=== PATIENT | female | born 1980 | race Caucasian/White ===

== ENCOUNTER 2020-07-16 11:23 | Outpatient (REF) | payer OTHER, SELFPAY | END 2020-07-16 11:24 | disposition home or self-care (01) | LOC: HO.LAB 11:23 | PROVIDERS: Visit Provider Internal Medicine | DX: Z20.822 Contact with and (suspected) exposure to COVID-19 (principal) | CPT/HCPCS: 36415; C9803; U0003 ==

== ENCOUNTER 2021-03-16 07:55 | Emergency (ER) | payer OTHER, SELFPAY ==
--- NOTE | 2021-03-16 08:09 | ECG_ITS ---
Test Reason : DIZZINESS Blood Pressure : / mmHG Vent. Rate : 074 BPM Atrial Rate : 074 BPM P-R Int : 142 ms QRS Dur : 082 ms QT Int : 386 ms P-R-T Axes : 036 028 016 degrees QTc Int : 428 ms Sinus rhythm with Premature atrial complexes Otherwise normal ECG When compared with ECG of 28-OCT-2017 10:50, Premature atrial complexes are now Present Referred By: Arielle Mejias Electronically Signed By:LUCINA MORE
--- NOTE | 2021-03-16 08:10 | ED.NAVMDI ---
HPI - Nausea/Vomiting/Diarrhea General Chief complaint: Dizziness Stated complaint: vomiting, diarrhea Time Seen by Provider: 03/16/21 08:04 Source: patient Mode of arrival: ambulatory Limitations: no limitations History of Present Illness MD elicited complaint: nausea, vomiting, diarrhea and other (dizziness, covid exposure) Onset (ago): day(s) (started Monday) Description of vomiting: food contents Associated nausea: Yes Associated abdominal pain: No Severity: moderate Exacerbating factors: eating Relieving factors: none Context: possible food poisoning (started AM after eating [employer]) Associated symptoms: malaise, nausea/vomiting, weakness and other (lightheaded) Related Data Previous Rx's Medication Instructions Recorded meclizine 25 mg tablet 25 mg PO TID PRN #30 tab 03/16/21 ondansetron 4 mg disintegrating 4 mg PO Q8H PRN #20 tab 03/16/21 tablet Allergies Allergy/AdvReac Type Severity Reaction Status Date / Time No Known Allergies [NKA] Allergy Unknown U Unverified 03/05/20 15:41 Review of Systems Review of Systems: Constitutional : No Weight loss, No Fever, No Chills ENT/Mouth : No sore throat, No Rhinorrhea Eyes: No Swelling, No Redness Cardiovascular : No Chest Pain, No SOB, NoEdema Respiratory : No Cough, No Sputum, No Wheezing Gastrointestinal : Positive Nausea, Positive Vomiting, positive Diarrhea, positive abdominal Pain, No Hematochezia, No Melena Genitourinary : No Dysuria, No Urinary Frequency, No Hematuria, No Urgency Musculoskeletal : No joint pain, No Myalgias, No Joint Swelling Skin : No Skin Lesions, No rash Neuro : No Weakness, No Numbness, pos Dizziness, No Headache Psych : No Anxiety/Panic, No Depression Heme/Lymph: No Bruising, No Lymphadenopathy Endocrine : No Polyuria, No Polydipsia All other systems reviewed and are negative. Gastrointestinal: Gastrointestinal: Reports nausea PMFSH Past Medical History Attestation statement: The following information was validated with the patient. Medical History (Updated 03/16/21 @ 14:30 by Arielle Mejias DO) Vertigo Surgical History (Updated 03/16/21 @ 08:13 by Arielle Mejias DO) Tubal ligation status Social History Social History (Updated 03/16/21 @ 08:13 by Arielle Mejias DO) Alcohol intake: never Patient Tobacco Use Status: Never used Tobacco Use of substances other than those prescribed or required for medical reasons: No Advance Directives: No Advance Directives Information Provided: Yes Physical Exam Vital Signs: Vital Signs: Last Vital Signs Temp 98.6 F 03/16/21 13:38 Pulse 70 03/16/21 13:38 Resp 17 03/16/21 13:38 BP 123/71 03/16/21 13:38 Pulse Ox 99 03/16/21 13:38 Body Mass Index 48.6 Appearance: Alert. Oriented X3. No acute distress. Eyes: Pupils equal, round and reactive to light. ENT: Pharynx normal. Neck: Normal inspection. Neck supple. CVS: Normal heart rate and rhythm. Pulses normal. Respiratory: No respiratory distress. Breath sounds normal. Abdomen: Soft and non-tender. Skin: Skin warm and dry. Normal skin color. Normal skin turgor. Extremities: No lower extremity edema. No calf ttp Neuro: Oriented X 3. No motor deficit. No sensory deficit. Course Course Course Narrative: unable to get IV access even with IV US - the patient is refusing access in the neck for EJ no vomiting labs wnl VS stable doubt ACS/PE/posterior stroke will DC home with meclizine MDM - Nausea/Vomiting/Diarrhea MDM Narrative Medical decision making narrative: 40 yo female here with n/v/d that has improved after eating [employer] on night - at this time no abdominal pain, feels dizzy and weak. Was exposed to COVID - at this time will need labs, IVF x 2L, COVID swab. Dispo per results and findings. Lab Data Result diagrams: 03/16/21 14:15 03/16/21 13:08 Labs: Lab Results 03/16/21 03/16/21 03/16/21 Range/Units 09:10 09:10 13:08 WBC (4.8-10.8) X10*3/uL RBC (4.20-5.50) X10*6/uL Hgb (12.0-16.0) g/dl Hct (37-47) % MCV (80-98) fL MCH (27.0-33.0) pg MCHC (31.0-35.0) g/dl RDW (11.0-16.0) % Plt Count (160-400) X10*3/uL MPV (9.4-12.3) fL Immature Gran % (Auto) (0.0-0.4) % Neut % (Auto) (45-73) % Lymph % (Auto) (20-40) % [place] % (Auto) (2-11) % Eos % (Auto) (0-4) % Baso % (Auto) (0-2) % Lymph # (Auto) (1.2-4.9) X10*3/uL [place] # (Auto) (0.1-1.2) X10*3/uL Eos # (Auto) (0.0-0.4) X10*3/uL Baso # (Auto) (0.0-0.2) X10*3/uL Abs Immat Gran (auto) (0.00-0.03) X10*3/uL Absolute Neuts (auto) (2.0-8.3) X10*3/uL Absolute Nucleated RBC (0.0-0.012) X10*3/uL Nucleated RBC % (auto) (0.0-0.2) /100WBC Sodium 136 (135-145) mmol/L Potassium 4.7 (3.3-5.1) mmol/L Chloride 105 (96-108) mmol/L Carbon Dioxide 21 L (22-29) mmol/L Anion Gap 15 (12-20) BUN 10 (9-16) mg/dL Creatinine 0.80 (0.5-1.4) mg/dL Estim Creat Clear Calc 145.1 Estimated GFR > 60 Random Glucose 83 (60-115) mg/dL Calcium 9.0 (8.4-10.2) mg/dL Magnesium 2.0 (1.6-2.6) mg/dL Total Bilirubin 0.7 (0.0-1.0) mg/dL Direct Bilirubin 0.2 (0.0-0.5) mg/dL AST 19 (5-31) U/L ALT 12 (0-31) U/L Alkaline Phosphatase 59 (39-117) U/L Total Protein 7.0 (6.5-8.0) g/dL Albumin 3.9 (3.5-5.0) g/dL Lipase 11 (8-78) U/L Urine Color YELLOW Urine Appearance CLEAR Urine pH 5.5 (5.0-8.0) Ur Specific [place] >= 1.030 H (1.005-1.025) Urine Protein NEG (NEG-TRACE) MG/DL Urine Glucose (UA) NEG (NEG) MG/DL Urine Ketones NEG (NEG) MG/DL Urine Blood TRACE (NEG) Urine Nitrite NEG (NEG) Ur Leukocyte Esterase TRACE H (NEG) Urine RBC 1-4 (0) /HPF Urine WBC 5-9 H (0-4) /HPF Ur Squamous Epith Cells 1+ /LPF Urine Bacteria 1+ /LPF Urine Mucus 1+ /LPF COVID-19 (PRAVEENA) Negative (Negative) COVID-19 Clin Com See Note 03/16/21 Range/Units 14:15 WBC 8.9 (4.8-10.8) X10*3/uL RBC 4.88 (4.20-5.50) X10*6/uL Hgb 13.1 (12.0-16.0) g/dl Hct 40.5 (37-47) % MCV 83.0 (80-98) fL MCH 26.8 L (27.0-33.0) pg MCHC 32.3 (31.0-35.0) g/dl RDW 13.2 (11.0-16.0) % Plt Count 174 (160-400) X10*3/uL MPV 10.8 (9.4-12.3) fL Immature Gran % (Auto) 0.2 (0.0-0.4) % Neut % (Auto) 63.3 (45-73) % Lymph % (Auto) 28.6 (20-40) % [place] % (Auto) 4.7 (2-11) % Eos % (Auto) 2.8 (0-4) % Baso % (Auto) 0.4 (0-2) % Lymph # (Auto) 2.6 (1.2-4.9) X10*3/uL [place] # (Auto) 0.4 (0.1-1.2) X10*3/uL Eos # (Auto) 0.3 (0.0-0.4) X10*3/uL Baso # (Auto) 0.0 (0.0-0.2) X10*3/uL Abs Immat Gran (auto) 0.02 (0.00-0.03) X10*3/uL Absolute Neuts (auto) 5.7 (2.0-8.3) X10*3/uL Absolute Nucleated RBC 0.000 (0.0-0.012) X10*3/uL Nucleated RBC % (auto) 0.0 (0.0-0.2) /100WBC Sodium (135-145) mmol/L Potassium (3.3-5.1) mmol/L Chloride (96-108) mmol/L Carbon Dioxide (22-29) mmol/L Anion Gap (12-20) BUN (9-16) mg/dL Creatinine (0.5-1.4) mg/dL Estim Creat Clear Calc Estimated GFR Random Glucose (60-115) mg/dL Calcium (8.4-10.2) mg/dL Magnesium (1.6-2.6) mg/dL Total Bilirubin (0.0-1.0) mg/dL Direct Bilirubin (0.0-0.5) mg/dL AST (5-31) U/L ALT (0-31) U/L Alkaline Phosphatase (39-117) U/L Total Protein (6.5-8.0) g/dL Albumin (3.5-5.0) g/dL Lipase (8-78) U/L Urine Color Urine Appearance Urine pH (5.0-8.0) Ur Specific [place] (1.005-1.025) Urine Protein (NEG-TRACE) MG/DL Urine Glucose (UA) (NEG) MG/DL Urine Ketones (NEG) MG/DL Urine Blood (NEG) Urine Nitrite (NEG) Ur Leukocyte Esterase (NEG) Urine RBC (0) /HPF Urine WBC (0-4) /HPF Ur Squamous Epith Cells /LPF Urine Bacteria /LPF Urine Mucus /LPF COVID-19 (PRAVEENA) (Negative) COVID-19 Clin Com ECG Data Attestation: I personally reviewed and interpreted this ECG as follows: ECG interpretation date: 03/16/21 ECG interpretation time: 08:37 Interpretation: Rate: 74 Rhythm: NSR [place]: normal Normal P waves. Normal SHANDRA. Normal QRS complex. ST T wave : normal no SHAHEED qTC: normal prior studies: no acute ischemia The study has been interpreted contemporaneously by me. . Discharge Plan Discharge Clinical Impression: Dizziness Vomiting Qualifiers: Vomiting type: unspecified Vomiting Intractability: non-intractable Nausea presence: with nausea Qualified Code(s): R11.2 - Nausea with vomiting, unspecified Diarrhea Qualifiers: Diarrhea type: unspecified type Qualified Code(s): R19.7 - Diarrhea, unspecified Patient Disposition: Home, Self-Care Instructions: Acute Nausea and Vomiting (ED), Acute Diarrhea (ED), Dizziness (ED) Additional Instructions: return to ED for any worsening symptoms or concerns Prescriptions: New meclizine 25 mg tablet 25 mg PO TID PRN (Reason: dizziness) Qty: 30 RF: 0 ondansetron 4 mg tablet,disintegrating 4 mg PO Q8H PRN (Reason: nausea and vomiting) Qty: 20 RF: 0 Referrals: Marla Albert MD [Primary Care Provider] - 2 days (if not better) Stand Alone Forms: Work/School Release
[2021-03-16 08:57] VITALS: BP 141/79; PULSE 66; RESP 16; TEMP 36.6; O2SAT 99; BMI 48.6
[2021-03-16 09:30] LABS: Appearance Urine CLEAR; Color Urine YELLOW; Glucose Urine UA NEG (NEG); Leukocyte Esterase Urine TRACE (NEG); Nitrite Urine NEG (NEG); PH 5.5 (5.0-8.0); Specific Gravity - Urine >= 1.030 (1.005-1.025); UACC Culture Trigger YES; Urine Blood TRACE (NEG); Urine Ketones NEG (NEG); Urine Protein NEG (NEG-TRACE)
[2021-03-16 09:43] LABS: IDNOW Serial# 9DD0AD1C
[2021-03-16 09:44] LABS: COVID-19 Test Negative (Negative)
[2021-03-16 09:51] LABS: Bacteria Urine 1+ /LPF; Mucus Urine 1+ /LPF; Squamous Epithelial Cell Urine 1+ /LPF
[2021-03-16 10:49] VITALS: BP 135/72; PULSE 71; RESP 16; O2SAT 100
[2021-03-16 13:38] VITALS: BP 123/71; PULSE 70; RESP 17; TEMP 37; O2SAT 99
[2021-03-16] MEDS: 0.9 % Sodium Chloride 1,000 ML 999 ML IVCONT (13:40)
[2021-03-16 13:57] LABS: Alanine Aminotransferase 12 U/L (0-31); Albumin Level 3.9 g/dL (3.5-5.0); Alkaline Phosphatase 59 U/L (39-117); Anion Gap 15 (12-20); Aspartate Amino Transferase 19 U/L (5-31); Bilirubin Direct 0.2 mg/dL (0.0-0.5); Bilirubin Total 0.7 mg/dL (0.0-1.0); Blood Urea Nitrogen 10 mg/dL (9-16); Carbon Dioxide 21 mmol/L (22-29); Chloride 105 mmol/L (96-108); Creatinine Clr Calc Pharmacy 145.1; Estimated Glomerular Filt Rate > 60; Glucose Random 83 mg/dL (60-115); Lipase 11 U/L (8-78); Potassium 4.7 mmol/L (3.3-5.1); Sodium 136 mmol/L (135-145)
[2021-03-16] MEDS: Meclizine HCl 25 MG TABLET PO (14:18)
[2021-03-16 14:20] LABS: Hematocrit 40.5 % (37-47); Imm Gran Abs Auto 0.02 X10*3/uL (0.00-0.03); Imm Gran Pct Auto 0.2 % (0.0-0.4); MANUAL DIFF FLAG SCAN; PLT CLUMP 1; Red Blood Count 4.88 X10*6/uL (4.20-5.50); Red Cell Distribution Width 13.2 % (11.0-16.0); SCAN SMEAR FLAG 1
[2021-03-16 14:22] LABS: Basophils Percent Auto 0.4 % (0-2); Eosinophils Absolute Auto 0.3 X10*3/uL (0.0-0.4); Eosinophils Percent Auto 2.8 % (0-4); Hemoglobin 13.1 g/dl (12.0-16.0); Lymphocytes Absolute Auto 2.6 X10*3/uL (1.2-4.9); Lymphocytes Percent Auto 28.6 % (20-40); Mean Corpuscular HGB Conc 32.3 g/dl (31.0-35.0); Mean Corpuscular Hemoglobin 26.8 pg (27.0-33.0); Mean Platelet Volume 10.8 fL (9.4-12.3); Monocytes Absolute Auto 0.4 X10*3/uL (0.1-1.2); Monocytes Percent Auto 4.7 % (2-11); Neutrophils Absolute Auto 5.7 X10*3/uL (2.0-8.3); Neutrophils Percent Auto 63.3 % (45-73); Platelet Count 174 X10*3/uL (160-400); White Blood Count 8.9 X10*3/uL (4.8-10.8)
[2021-03-16 14:35] LABS: Alanine Aminotransferase 13 U/L (0-31); Albumin Level 4.1 g/dL (3.5-5.0); Alkaline Phosphatase 61 U/L (39-117); Anion Gap 14 (12-20); Aspartate Amino Transferase 13 U/L (5-31); Bilirubin Direct 0.2 mg/dL (0.0-0.5); Bilirubin Total 0.7 mg/dL (0.0-1.0); Blood Urea Nitrogen 10 mg/dL (9-16); Calcium 8.8 mg/dL (8.4-10.2); Carbon Dioxide 21 mmol/L (22-29); Chloride 106 mmol/L (96-108); Creatinine Clr Calc Pharmacy 152.7; Estimated Glomerular Filt Rate > 60; Glucose Random 80 mg/dL (60-115); Lipase 10 U/L (8-78); Magnesium 1.8 mg/dL (1.6-2.6); Potassium 4.1 mmol/L (3.3-5.1); Sodium 137 mmol/L (135-145); Total Protein 6.8 g/dL (6.5-8.0)
[2021-03-16 14:49] LABS: SLIDE REVIEW VERIFIED
== END 2021-03-16 15:13 | disposition home or self-care (01) ==
PROVIDERS: Emergency Provider Emergency Medicine; PCP Internal Medicine
DX: R42 Dizziness and giddiness (principal); R11.2 Nausea with vomiting, unspecified; R19.7 Diarrhea, unspecified; Z20.822 Contact with and (suspected) exposure to COVID-19; Z79.899 Other long term (current) drug therapy
CPT/HCPCS: 36415; 80048; 80076; 81001; 83690; 83735; 85025; 87086; 87635; 93005; 96360; 99284; 99285

== ENCOUNTER 2021-06-19 11:33 | Outpatient (REF) | payer OTHER, SELFPAY ==
[2021-06-19 13:01] LABS: COVID-19 Test Positive (Negative); IDNOW Serial# 55D5AD1C
== END 2021-06-19 11:34 | disposition home or self-care (01) ==
LOC: HO.LAB 11:33
PROVIDERS: Visit Provider Internal Medicine
DX: Z20.822 Contact with and (suspected) exposure to COVID-19 (principal)
CPT/HCPCS: 36415; 87635; C9803

== ENCOUNTER 2023-06-28 08:49 | Emergency (ER) | payer OTHER, SELFPAY ==
--- NOTE | ~2023-06-28 | XR_ITS ---
EXAMINATION: XR CHEST CLINICAL INFORMATION: Cough COMPARISON: 04/09/2015 TECHNIQUE: 2 views of the chest were obtained. FINDINGS: Lungs are well-inflated and clear. Trachea is midline in position. No interstitial disease, consolidation or mass. No pleural effusion or pneumothorax. Cardiac silhouette and pulmonary vessels are normal in size. The mediastinum and jennifer have normal contour. Surgical clips in epigastric region of upper abdomen. Otherwise, the visualized upper abdomen and skeletal structures are unremarkable. XR/XR chest 2V IMPRESSION: No acute cardiopulmonary abnormality. No evidence of pneumonia.
[2023-06-28 09:27] VITALS: BP 118/73; PULSE 91; RESP 16; TEMP 36.6; O2SAT 97; BMI 32.8
[2023-06-28 11:38] LABS: Influenza A PCR POSITIVE (Negative); Influenza B PCR NEGATIVE (Negative); Resp Syncy Virus RNA Qual PCR NEGATIVE (Negative); SARS COV2 PCR INHOUSE NEGATIVE (Negative)
--- NOTE | 2023-06-28 12:10 | ED.URI ---
HPI - URI/Sore Throat General Chief Complaint: Upper Respiratory Symptoms Stated Complaint: Difficulty breathing Time Seen by Provider: 06/28/23 11:56 Source: patient Mode of arrival: ambulatory Limitations: no limitations History of Present Illness HPI Narrative: 43 year old female with pmhx significant for asthma presents to the ED today for evaluation of cough and body aches x5 days. Endorses coughing fit last night where she had to use her nebulizer for relief. Cough is not productive of sputum. Reports waking up this morning with a sore throat. Has not been taking any OTC medications at home. Denies sick contacts. Tested negative for COVID at home. Denies fever, SILVA, ear pain, chest pain, shortness of breath, nausea/vomiting, abd pain, diarrhea, dysuria. Related Data Previous Rx's Medication Instructions Recorded meclizine 25 mg tablet 25 mg PO TID PRN dizziness #30 tabs 03/16/21 ondansetron 4 mg disintegrating 4 mg PO Q8H PRN nausea and 03/16/21 tablet vomiting #20 tabs benzonatate 100 mg capsule 100 mg PO BID PRN cough #20 caps 06/28/23 Allergies Allergy/AdvReac Type Severity Reaction Status Date / Time No Known Allergies [NKA] Allergy Unknown U Unverified 03/05/20 15:41 Review of Systems Review of Systems: Constitutional: No fever, chills, fatigue, night sweats, weight changes ENT/Mouth: No ear pain, hearing loss, nasal congestion, sinus pain, rhinorrhea, +sore throat, +odynophagia, No dysphagia Eyes: No eye pain, swelling, redness, vision changes, discharge Cardio: No chest pain, palpitations, VORA, orthopnea, peripheral edema Pulm: No SOB, +cough, No sputum, wheezing, dyspnea, hemoptysis GI: No nausea, vomiting, hematemesis, abdominal pain, diarrhea, constipation, hematochezia, melena : No irregular bleeding, dysuria, frequency, urgency, hesitancy, hematuria, flank pain MSK: No back pain, neck pain, joint pain, +myalgias Skin: No lesions, rashes Neuro: No weakness, numbness, paresthesias, LOC, dizziness, headache All other systems reviewed and are negative. [facility] Past Medical History Attestation statement: The following information was validated with the patient. Source: old records reviewed and nursing notes reviewed Onset Date is defined in the Problem List Problems that require an onset date and time if occurred within 24 hrs of arrival to the ED Aortic Dissection and Rupture; Neurologic impairment; Cardiopulmonary Arrest; Endotracheal Intubation; Insertion or Replacement of Mechanical Circulatory Assist Device Medical History Vertigo Surgical History Tubal ligation status Social History Social History Alcohol intake: never Patient Tobacco Use Status: Never used Tobacco Advance Directives: No Advance Directives Information Provided: No Physical Exam Vital Signs: Vital Signs: Last Vital Signs Temp 97.9 F 06/28/23 09:27 Pulse 91 06/28/23 09:27 Resp 16 06/28/23 09:27 BP 118/73 06/28/23 09:27 Pulse Ox 97 06/28/23 09:27 O2 Del Method Room Air 06/28/23 09:27 BMI result Body Mass Index 32.8 Vital signs stable, afebrile. Const: General: cooperative, healthy appearing, comfortable, no acute distress, alert and awake Orientation/consciousness: patient oriented x3 Limitations: no limitations HEENT: Other: posterior oropharynx without edema or erythema, no tonsillar exudates, controlling secretions, speaking in complete sentences Head: Yes normal to inspection Ears: hearing grossly normal bilaterally, external ears normal, TM's normal bilaterally, EAC's normal, mastoids normal and no periauricular adenopathy General nose exam: Normal external nose present and No nasal discharge present Face and sinus: Yes normal facial exam and Yes sinuses nontender Eyes: General: appearance normal, both eyes and all related structures Pupils: Equal, round and reactive pupils present Neck: Neck: Yes normal visual inspection, Yes full ROM and Yes no lymphadenopathy Resp: Effort & Inspection: normal respiratory effort and able to speak in complete sentences Auscultation: clear to auscultation bilaterally and no wheezes Cardio: Rate: regular rate Rhythm: regular rhythm GI: Inspection: Yes normal to inspection Palpation (GI): Soft to palpation and nontender Skin: General skin exam: no rashes or lesions noted Neuro: General: patient oriented x3, gait normal and moves all extremities Cranial nerves: Yes Equal, round and reactive pupils present Extrem: General: Yes normal to inspection Course Course Course Narrative: 1230-- Positive for Flu A. CXR unremarkable. informed patient of work up results and educated on symptomatic treatment. will send haja pride to pharmacy for cough. Patient has remained stable throughout ED visit today. Discussed strict return precautions. All questions answered at this time. Patient is agreeable with disposition and stable for discharge. Medical Decision Making Medical Decision Making [facility] Narrative: 43 year old female with pmhx significant for asthma presents to the ED today for evaluation of cough and body aches x5 days. Vital signs stable, afebrile. posterior oropharynx wnl. no tonsillar exudates. rrr. Lungs cta b/l. no active coughing. no rashes. Clinical concern for viral syndrome, pneumonia, bronchitis. Unlikely strep throat, [employer], retropharyngeal abscess, dental abscess, epiglottis, acute respiratory distress. Plan for serology and cxr. Differential Diagnosis Differential Diagnoses: The differential diagnosis associated with the presentation includes as above. Admission/Observation Not indicated Lab Data [facility] Lab Attestation statement: I reviewed the patient's lab results. as above Labs: Lab Results 06/28/23 Range/Units 10:32 Influenza Type A (PCR) POSITIVE A (Negative) Influenza Type B (PCR) NEGATIVE (Negative) RSV RNA Qual (PCR) NEGATIVE (Negative) SARS-CoV-2 RNA (RT-PCR) NEGATIVE (Negative) Independent Interpretation I performed an independent interpretation of an: Plain X-Ray Interpretation: CXR without infiltrate or consolidation, agree with radiologist's interpretation. Radiology Impression Discussion of test interpretation with radiology: I have reviewed the radiologist's reading. Radiologist Impression: XR chest 2V IMPRESSION: No acute cardiopulmonary abnormality. No evidence of pneumonia. External Record Review External record reviewed: Inpatient record Prescription Management I considered prescription management with: Pain Medication Critical Care Time Critical Care Time Critical Care Time: No Discharge Plan Discharge Clinical Impression: Influenza A Patient Disposition: Home, Self-Care Instructions: Influenza (ED), Flu Shot (Vaccine) for Adults (ED) Additional Instructions: You tested positive for influenza A today. Your chest xray is normal and does not demonstrate pneumonia. We discussed symptomatic treatment. Take Tylenol ibuprofen at home for fevers or body aches. Haja Pride have been sent to your pharmacy. Take these as needed for cough. Make sure your elevating or pillows at night to help with night cough. Limit contact with other individuals as this is very contagious. Follow-up with your primary care provider. If symptoms persist or worsen please return to the emergency department. In the case of an emergency call 911. Prescriptions: New benzonatate 100 mg capsule 100 mg PO BID PRN (Reason: cough) Qty: 20 0RF No Action meclizine 25 mg tablet 25 mg PO TID PRN (Reason: dizziness) Qty: 30 0RF ondansetron 4 mg tablet,disintegrating 4 mg PO Q8H PRN (Reason: nausea and vomiting) Qty: 20 0RF Referrals: Coni Carter MD [Primary Care Provider] - Stand Alone Forms: Work/School Release Interventions: ED Discharge Assessment Last Done: 06/28/23 13:41 Discharge Date/Time: 06/28/23 13:42
== END 2023-06-28 13:42 | disposition home or self-care (01) ==
PROVIDERS: Emergency Provider Emergency Medicine; PCP Internal Medicine
DX: J10.1 Influenza due to other identified influenza virus with other respiratory manifestations (principal); Z11.52 Encounter for screening for COVID-19; J45.909 Unspecified asthma, uncomplicated
CPT/HCPCS: 0241U; 71046; 99282; 99283

== ENCOUNTER 2023-11-12 13:07 | Emergency (ER) | payer OTHER, SELFPAY ==
[2023-11-12 14:01] VITALS: BP 128/84; PULSE 76; RESP 16; TEMP 37.1; O2SAT 100; BMI 32.6
--- NOTE | 2023-11-12 14:05 | ED.GENADULT ---
HPI - General Adult General Chief complaint: Dental/Oral Stated complaint: Tooth pain radiating to ear Time Seen by Provider: 11/12/23 14:04 Source: patient, RN notes reviewed and old records reviewed Mode of arrival: ambulatory Limitations: no limitations History of Present Illness HPI narrative: 43-year-old female presents for evaluation of left facial pain and dental pain. She reports that she fractured a tooth on her left lower side 5 weeks ago. She reports she developed pain over the last week that is worsening today. The pain radiates towards her left ear She has been using Orajel with minimal relief She reports that due to insurance reasons she will not be able to see her dentist until next month Her pain is sharp, stabbing, 03/28 Related Data Previous Rx's ?Medication ?Instructions ?Recorded meclizine 25 mg tablet 25 mg PO TID PRN dizziness #30 tabs 03/16/21 ondansetron 4 mg disintegrating 4 mg PO Q8H PRN nausea and 03/16/21 tablet vomiting #20 tabs benzonatate 100 mg capsule 100 mg PO BID PRN cough #20 caps 06/28/23 amoxicillin 875 mg-potassium 1 tab PO Q12H #20 tabs 11/12/23 clavulanate 125 mg tablet tramadol 50 mg tablet 50 mg PO Q6H PRN pain #12 tabs 11/12/23 Allergies Allergy/AdvReac Type Severity Reaction Status Date / Time No Known Allergies [NKA] Allergy Unknown U Verified 11/12/23 14:04 Review of Systems Constitutional: Constitutional: Denies body ache(s), Denies chills, Denies fever(s) and Denies headache(s) ENT: Reports otalgia, Denies headache(s) and Reports mouth pain Cardiovascular: Cardiovascular: Denies chest pain and Denies dyspnea Respiratory: Respiratory: Denies cough and Denies dyspnea Gastrointestinal: Gastrointestinal: Denies abdominal pain, Denies nausea and Denies vomiting Neurologic: Denies headache(s) [facility] Past Medical History Medical History Vertigo Surgical History Tubal ligation status Social History Social History (Reviewed 06/28/23 @ 13:10 by NENA Quintero Alcohol intake: never Patient Tobacco Use Status: Never used Tobacco Advance Directives: No Advance Directives Information Provided: No Physical Exam ED Vital Signs: Vital Signs - 24 hr 11/12/23 14:01 11/12/23 14:15 Temperature 98.7 F 98.7 F Pulse Rate 76 76 Respiratory Rate 16 16 Blood Pressure 128/84 128/84 Pulse Oximetry 100 100 Oxygen Delivery Method Room Air Room Air BMI result Body Mass Index 32.6 Const General: healthy appearing, comfortable, no acute distress, alert and awake Nutritional Appearance: well nourished Orientation/consciousness: patient oriented x3 HENMT Other: Dental fracture to tooth number 20 with dentin exposed. No surrounding erythema or gingival edema Head: Yes normocephalic and Yes atraumatic Ears: TM's normal bilaterally and EAC's normal Throat: Yes posterior oropharynx normal Eyes Eyelids: Yes eyelids normal Conjunctivae: conjunctivae normal Sclerae: sclerae normal Corneas: corneas normal Pupils: Equal, round and reactive pupils present EOM: EOMs intact bilaterally Neck Neck: Yes full ROM Resp Effort & Inspection: normal respiratory effort, able to speak in complete sentences and not labored Skin General skin exam: elasticity normal Neuro General: patient oriented x3 Cranial nerves: Yes Equal, round and reactive pupils present and Yes Bilaterally intact EOM present Cognition (Neuro): normal cognition Extrem Other: Moving all extremities well without any obvious deformities Medical Decision Making Medical Decision Making [facility] Narrative: 43-year-old female presents for evaluation of left facial pain and likely developing dental infection due to recent dental fracture. Will discharge with Augmentin and she will follow-up with her dentist when able Differential Diagnosis Differential Diagnoses: The differential diagnosis associated with the presentation includes Dental pain Dental abscess Dental caries Pain Discharge Plan Discharge Clinical Impression: Toothache, Acute facial pain Patient Disposition: Home, Self-Care Instructions: Toothache (ED) Additional Instructions: Take Augmentin twice daily for the next 10 days You may continue using Tylenol for pain. Use tramadol for more severe breakthrough pain This may make you sleepy, did not drink alcohol or drive after taking it Follow-up with your dentist and primary doctor Prescriptions: New tramadol 50 mg tablet 50 mg PO Q6H PRN (Reason: pain) Qty: 12 0RF amoxicillin-pot clavulanate 875-125 mg tablet 1 tab PO Q12H Qty: 20 0RF No Action meclizine 25 mg tablet 25 mg PO TID PRN (Reason: dizziness) Qty: 30 0RF ondansetron 4 mg tablet,disintegrating 4 mg PO Q8H PRN (Reason: nausea and vomiting) Qty: 20 0RF benzonatate 100 mg capsule 100 mg PO BID PRN (Reason: cough) Qty: 20 0RF Stand Alone Forms: Work/School Release Interventions: ED Discharge Assessment Last Done: 11/12/23 14:15 Discharge Date/Time: 11/12/23 14:16 Print Language: Italian
[2023-11-12 14:15] VITALS: BP 128/84; PULSE 76; RESP 16; TEMP 37.1; O2SAT 100
== END 2023-11-12 14:16 | disposition home or self-care (01) ==
LOC: HO.ED 14:10
PROVIDERS: Emergency Provider Student in an Organized Health Care Education/Training Program; PCP Internal Medicine
DX: K08.89 Other specified disorders of teeth and supporting structures (principal); G50.1 Atypical facial pain
CPT/HCPCS: 99282; 99283

== ENCOUNTER 2024-12-09 12:59 | Emergency (ER) | payer OTHER, SELFPAY ==
--- NOTE | ~2024-12-09 | CT_ITS ---
CLINICAL HISTORY: memory issues, bilateral hand paresthesia CT head without contrast Comparison: None provided Findings: No intra-axial mass, midline shift, hydrocephalus, or acute hemorrhage. No significant atrophy-like change or white matter disease. The visualized paranasal sinuses and mastoid air cells are normal. The orbits are unremarkable. No skull fracture. IMPRESSION: 1. No acute intracranial findings. This document has been electronically signed by: Timbo Catherine MD on 12/09/2024 18:29:39
--- NOTE | 2024-12-09 13:09 | ED.GENADULT ---
HPI - General Adult General Chief complaint: Neuro Symptoms/Deficit Stated complaint: ? TIA Time Seen by Provider: 12/09/24 16:04 History of Present Illness ED Provider: Hakan Steve MD HPI narrative: This is a pleasant 44-year-old female who reports chronic PTSD. Currently increased social stressors with the relationship issues. She has been talking to her therapist recently and has been quite stressed and having what she reports as ?memory issues ?over the past month. No abrupt or sudden or particularly different symptoms in the past days or week however she noted these symptoms to her therapist who asked her to seek medical evaluation. Patient tried to get up PCP office but upon explaining her symptoms they sent her to the emergency department. The patient has mild generalized headaches chronically unchanged no thunderclap headache no neck pain. She denies any injuries recently she tells me that she has challenge remembering things she said even in a few sec ago. She has no dysarthria or aphasia. She denies focal motor changes or sensory issues or complaints other than occasional feeling of bilateral symmetric concurrent paresthesias of the hands. Related Data Previous Rx's ?Medication ?Instructions ?Recorded meclizine 25 mg tablet 25 mg PO TID PRN dizziness #30 tabs 03/16/21 ondansetron 4 mg disintegrating 4 mg PO Q8H PRN nausea and 03/16/21 tablet vomiting #20 tabs benzonatate 100 mg capsule 100 mg PO BID PRN cough #20 caps 06/28/23 amoxicillin 875 mg-potassium 1 tab PO Q12H #20 tabs 11/12/23 clavulanate 125 mg tablet tramadol 50 mg tablet 50 mg PO Q6H PRN pain #12 tabs 11/12/23 Allergies Allergy/AdvReac Type Severity Reaction Status Date / Time No Known Allergies (NKA) Allergy Unknown U Verified 12/09/24 13:12 [facility] Past Medical History Medical History Vertigo Surgical History Tubal ligation status Social History Social History Alcohol intake: never Patient Tobacco Use Status: Never used Tobacco Smoked in Last 30 Days: No Use of substances other than those prescribed or required for medical reasons: No Advance Directives: No Advance Directives Information Provided: Yes Patient : No Physical Exam ED Vital Signs: Vital Signs - 24 hr 12/09/24 13:11 12/09/24 17:09 12/09/24 17:11 Temperature 98.2 F Pulse Rate 66 59 64 Respiratory Rate 18 Blood Pressure 110/83 125/74 129/78 Pulse Oximetry 99 Oxygen Delivery Method Room Air 12/09/24 17:12 12/09/24 17:13 12/09/24 18:55 Temperature 98.1 F 98.1 F Pulse Rate 70 56 Respiratory Rate 18 18 Blood Pressure 127/83 127/83 127/83 Pulse Oximetry 99 99 Oxygen Delivery Method Room Air Room Air BMI result Body Mass Index 30.5 Const Other: GENERAL: Well appearing. No apparent distress. Alert. HEAD/NECK: Normal to inspection. Neck supple. No cervical lymphadenopathy. EYES: Normal to inspection. Sclera non-icteric. ENMT: External nose normal. RESPIRATORY: Respiratory effort normal. Lungs clear to auscultation bilaterally. CARDIOVASCULAR: Regular rate. Normal rhythm. No murmur. No rubs. GI: Soft, non-tender, non-distended. No rebound or guarding. No masses palpable. No hepatosplenomegaly. SKIN: No jaundice. NEUROLOGICAL: Alert. PSYCHIATRIC: Alert. Appearance appropriate for situation. Attitude cooperative. OTHER: Comprehensive Neuro exam: Face symmetric, tongue midline, strong symmetric eye closure, pupils symmetric and reactive to light, intact sensation to the face throughout, intact strong face deviation and shoulder shrug. Sensation intact to light touch throughout 5 out of 5 strength in bilateral upper extremities, 5 and 5 strength in lower extremities Course Course Course Narrative: This is an RME: Additional HPI, ROS, PE not included below will be deferred to primary provider. RME assessment and note performed by: Jess Sandoval PA-C This is a [id number]-female who presents to the ER with complaints of memory difficulties for the last month. She called her primary as she reports significant FMHx of early onset dementia and she wanted to follow up. She reports that she also has been under going alot of stress and her therapist states that this could be due to that. Her PCP had told her to come to the ED for further eval. She does report some lightheadedness that occurs with positional changes. Plan: EKG, labs Medical Decision Making Medical Decision Making MDM Narrative: 44-year-old female with increased stress outpatient. Ongoing symptoms 1 month without focality. These are nonspecific and mostly short-term memory related. No explicit or specific focal motor deficits or speech changes suggestive of aphasia or dysarthria. Plain head CT performed without acute pathology. Patient may need outpatient Neurology evaluation including MRI comprehensive mini mental or other neuropsychiatric testing. Lab Data 12/09/24 13:28 12/09/24 13:28 Labs: Lab Results 12/09/24 12/09/24 Range/Units 13:28 13:40 WBC 6.4 (4.8-10.8) X10*3/uL RBC 4.57 (4.20-5.50) X10*6/uL Hgb 12.5 (12.0-16.0) g/dl Hct 37.4 (37.0-47.0) % MCV 81.8 (80.0-98.0) fL MCH 27.4 (27.0-33.0) pg MCHC 33.4 (31.0-35.0) g/dl RDW 13.1 (11.0-16.0) % Plt Count 226 (160-400) X10*3/uL MPV 10.0 (9.4-12.3) fL Immature Gran % (Auto) 0.2 (0.0-0.4) % Neut % (Auto) 54.5 (45-73) % Lymph % (Auto) 35.4 (20-40) % [place] % (Auto) 5.6 (2-11) % Eos % (Auto) 3.7 (0-4) % Baso % (Auto) 0.6 (0-2) % Lymph # (Auto) 2.3 (1.2-4.9) X10*3/uL [place] # (Auto) 0.4 (0.1-1.2) X10*3/uL Eos # (Auto) 0.2 (0.0-0.4) X10*3/uL Baso # (Auto) 0.0 (0.0-0.2) X10*3/uL Abs Immat Gran (auto) 0.01 (0.00-0.03) X10*3/uL Absolute Neuts (auto) 3.5 (2.0-8.3) x10*3/uL Absolute Nucleated RBC 0.000 (0.0-0.012) X10*3/uL Nucleated RBC % (auto) 0.0 (0.0-0.2) /100WBC Sodium 137 (135-145) mmol/L Potassium 3.8 (3.3-5.1) mmol/L Chloride 105 (96-108) mmol/L Carbon Dioxide 27 (22-29) mmol/L Anion Gap 9 L (12-20) BUN 15 (9-16) mg/dL Creatinine 0.96 (0.5-1.4) mg/dL Estim Creat Clear Calc 84.2 Estimated GFR > 60 Random Glucose 87 (60-115) mg/dL Calcium 9.5 D (8.4-10.2) mg/dL Magnesium 2.2 (1.6-2.6) mg/dL Total Bilirubin 0.4 (0.0-1.0) mg/dL Direct Bilirubin 0.1 (0.0-0.5) mg/dL AST 16 (5-31) U/L ALT 11 (0-31) U/L Alkaline Phosphatase 50 (39-117) U/L Troponin I High Sens < 2.7 (<3.5-17.0) ng/L Total Protein 7.1 (6.5-8.0) g/dL Albumin 4.6 (3.5-5.0) g/dL Lipase 19 (8-78) U/L Urine Color Yellow Urine Appearance Clear Urine pH 5.0 (5.0-9.0) Ur Specific [place] 1.025 (1.005-1.025) Urine Protein Negative (Neg-Trace) mg/dL Urine Glucose (UA) Negative (Negative) mg/dL Urine Ketones Trace (Negative) mg/dL Urine Blood Negative (Negative) Urine Nitrite Negative (Negative) Ur Leukocyte Esterase Moderate (2+) H (Negative) Urine RBC 0-2 (0-2) /HPF Urine WBC 0-5 (0-5) /HPF Ur Squamous Epith Cells 0-2 (0-2) /HPF Urine Bacteria None Seen (None Seen) Hyaline Casts 0-2 (0-2) /LPF Discharge Plan Discharge Clinical Impression: Memory changes Patient Disposition: Home, Self-Care Instructions: Disorders of Consciousness (DC) Additional Instructions: DISCHARGE DIAGNOSES: Nonspecific changes in your memory unclear cause at this time HISTORY OF PRESENTATION: ?Memory changes for about a month EMERGENCY DEPARTMENT COURSE,TESTS, TREATMENTS: While in the ED today you had basic lab work including blood counts and chemistry tests and CT of the brain these were all reassuring DISCHARGE MEDICATIONS: ?[We have made no changes to your regular medication regimen] FOLLOW-UP: ?Call your primary or general physician soon as possible to discuss your symptoms, your ED visit and to discuss follow up plans Call your primary doctor you may need referral to outpatient Neurology for follow up INSTRUCTIONS ?& RETURN PRECAUTIONS: If any symptoms change first call your primary physician, if it is after-hours your primary doctors office should have a provider microsoft application developer you can speak with. If the symptoms are severe or very concerning to you then call 911 or return to the ED. Hakan Steve MD Emergency Physician [facility] Prescriptions: No Action meclizine 25 mg tablet 25 mg PO TID PRN (Reason: dizziness) Qty: 30 0RF ondansetron 4 mg tablet,disintegrating 4 mg PO Q8H PRN (Reason: nausea and vomiting) Qty: 20 0RF benzonatate 100 mg capsule 100 mg PO BID PRN (Reason: cough) Qty: 20 0RF tramadol 50 mg tablet 50 mg PO Q6H PRN (Reason: pain) Qty: 12 0RF amoxicillin-pot clavulanate 875-125 mg tablet 1 tab PO Q12H Qty: 20 0RF [place] [facility] [place], [place] Referral Note: Call for follow up appointment for ongoing neuropsychiatric/memory issues Stand Alone Forms: Work/School Release Interventions: ED Discharge Assessment Last Done: 12/09/24 18:55 Discharge Date/Time: 12/09/24 18:56 Print Language: Portuguese
[2024-12-09 13:11] VITALS: BP 110/83; PULSE 66; RESP 18; TEMP 36.8; O2SAT 99; BMI 30.5
--- NOTE | 2024-12-09 13:11 | ECG_ITS ---
Test Reason : lightheadedness Blood Pressure : */* mmHG Vent. Rate : 65 BPM Atrial Rate : 65 BPM P-R Int : 138 ms QRS Dur : 78 ms QT Int : 390 ms P-R-T Axes : 37 42 25 degrees QTcB Int : 405 ms Normal sinus rhythm Normal ECG When compared with ECG of 16-Mar-2021 08:19, Premature atrial complexes are no longer Present Referred By: Jess Sandoval Electronically Signed By: RUDY PATEL
[2024-12-09 13:39] LABS: MANUAL DIFF FLAG NO
[2024-12-09 13:43] LABS: Basophils Percent Auto 0.6 % (0-2); Eosinophils Absolute Auto 0.2 X10*3/uL (0.0-0.4); Eosinophils Percent Auto 3.7 % (0-4); Hematocrit 37.4 % (37.0-47.0); Hemoglobin 12.5 g/dl (12.0-16.0); Imm Gran Abs Auto 0.01 X10*3/uL (0.00-0.03); Imm Gran Pct Auto 0.2 % (0.0-0.4); Lymphocytes Absolute Auto 2.3 X10*3/uL (1.2-4.9); Lymphocytes Percent Auto 35.4 % (20-40); Mean Corpuscular HGB Conc 33.4 g/dl (31.0-35.0); Mean Corpuscular Hemoglobin 27.4 pg (27.0-33.0); Mean Corpuscular Volume 81.8 fL (80.0-98.0); Monocytes Absolute Auto 0.4 X10*3/uL (0.1-1.2); Monocytes Percent Auto 5.6 % (2-11); Neutrophils Absolute Auto 3.5 x10*3/uL (2.0-8.3); Neutrophils Percent Auto 54.5 % (45-73); Platelet Count 226 X10*3/uL (160-400); Red Blood Count 4.57 X10*6/uL (4.20-5.50); Red Cell Distribution Width 13.1 % (11.0-16.0); White Blood Count 6.4 X10*3/uL (4.8-10.8)
[2024-12-09 13:49] LABS: Color Urine Yellow; Glucose Urine UA Negative (Negative); Leukocyte Esterase Urine Moderate (2+) (Negative); Nitrite Urine Negative (Negative); Specific Gravity - Urine 1.025 (1.005-1.025); UMIC TRIGGER UACC YES; Urine Blood Negative (Negative); Urine Ketones Trace mg/dL (Negative); Urine Protein Negative (Neg-Trace)
[2024-12-09 13:50] LABS: Appearance Urine Clear
[2024-12-09 13:55] LABS: Bacteria Urine None Seen (None Seen); Hyaline Casts Urine 0-2 /LPF (0-2); RBC Urine 0-2 /HPF (0-2); Squamous Epithelial Cell Urine 0-2 /HPF (0-2); UACC Culture Trigger YES; WBC Urine 0-5 /HPF (0-5)
[2024-12-09 14:00] LABS: Alanine Aminotransferase 11 U/L (0-31); Albumin Level 4.6 g/dL (3.5-5.0); Alkaline Phosphatase 50 U/L (39-117); Anion Gap 9 (12-20); Aspartate Amino Transferase 16 U/L (5-31); Bilirubin Direct 0.1 mg/dL (0.0-0.5); Bilirubin Total 0.4 mg/dL (0.0-1.0); Blood Urea Nitrogen 15 mg/dL (9-16); Calcium 9.5 mg/dL (8.4-10.2); Carbon Dioxide 27 mmol/L (22-29); Chloride 105 mmol/L (96-108); Creatinine Clr Calc Pharmacy 84.2; Estimated Glomerular Filt Rate > 60; Glucose Random 87 mg/dL (60-115); Lipase 19 U/L (8-78); Magnesium 2.2 mg/dL (1.6-2.6); Potassium 3.8 mmol/L (3.3-5.1); Sodium 137 mmol/L (135-145); Total Protein 7.1 g/dL (6.5-8.0)
[2024-12-09 14:12] LABS: Troponin-I High Sensitivity < 2.7 ng/L (<3.5-17.0)
[2024-12-09 17:09] VITALS: BP 125/74; PULSE 59
[2024-12-09 17:11] VITALS: BP 129/78; PULSE 64
[2024-12-09 17:12] VITALS: BP 127/83; PULSE 70
[2024-12-09 17:13] VITALS: BP 127/83; RESP 18; TEMP 36.7; O2SAT 99
--- OUTSIDE RECORDS SUMMARY | 2024-12-09 17:30 | XMS_ITS | Encounter Summary ---
Author Organization [facility] [place] [address] Care Team Providers Care Ophthalmic Nurse Name Role Phone Coni Carter MD Primary Care Provider [phone] Encounter Details Date Type Department Care Team (Late st Contact Info) Description 12/09/2024 Nurse Triage Adult Medicine [address] [address] Milena Gonzalez RN Social History Tobacco Use Types Packs/Day Years Used Date Smoking Tobacco: Never Smokeless Tobacco: Never Alcohol Use Standard Drinks/Week Comments Not Currently 0 (1 standard drink = 0.6 oz pur e alcohol) Comments Unknown Sex and Gender Information Value Date Recorded Sex Assigned at Not on file Legal Sex Female 10:12 AM EST Gender Identity Not on file Sexual Orientation Not on file documented as of this encounter Functional Status * Are you deaf or do you have serious difficulty hearing? Answer Date of Assessment Author No 10/20/2024 8:49 PM EDT Rey Amanda RN * Are you blind or do you have serious difficulty seeing, even when wearing glasses? Answer Date of Assessment Author No 10/20/2024 8:49 PM EDT Rey Amanda RN * Do you have serious difficulty walking or climbing stairs? Answer Date of Assessment Author No 10/20/2024 8:49 PM EDT Rey Amanda RN * Do you have serious difficulty dressing or bathing? Answer Date of Assessment Author No 10/20/2024 8:49 PM EDT Rey Amanda RN * Because of a physical, mental, or emotional condition, do you have serious difficulty doing errandsalone such as visiting the doctor? Answer Date of Assessment Author No 10/20/2024 8:49 PM ILEANAT Rey Amanda RN documented as of this encounter Mental Status * Because of a physical, mental, or emotional condition, do you have serious difficulty concentrating, remembering, or making decisions? (5 years old or older) Answer Entry Date Author No 10/20/2024 8:49 PM EDT Rey Amanda RN documented in this encounter Progress Notes * Milena Gonzalez RN - 12/09/2024 11:42 AM EDT Pt states she is forgetting things she has said immediately after saying them. She states it is getting progressively worse. She was advised to go to the ER for further evaluation and treatment. She is not in agreement with this plan. She is requesting an appointment in the office. She was informedas she is being instructed to go to the ER she requires a higher level of care than can be providedin the office and an appointment cannot be made. She is demanding an appointment in the office. Again declined pt's request. She was informed by not going to the ER she is putting her health at risk up to and including the possibility of her . She then asked to speak to a pressing department supervisor and asked to wait on hold. Transferred Racl's extension. Reason for Disposition [1] Acting confused (e.g., disoriented, slurred speech) AND [2] brief (now gone) Answer Assessment - Initial Assessment Questions 1. LEVEL OF CONSCIOUSNESS: How are they (the patient) acting right now? (e.g., alert-oriented, confused, lethargic, stuporous, comatose) Alert and oriented. She is forgetting things she says immediately after saying them. 2. ONSET: When did the confusion start? (e.g., minutes, hours, days) 1 month ago 3. PATTERN: Does this come and go, or has it been constant since it started? Is it present now? Intermittent becoming more consistent over the last 2 weeks. She has PTSD and trauma. Her counselorbelieves that part of her brain is shutting down to process her trauma. 4. ALCOHOL or DRUGS: Have they been drinking alcohol or taking any drugs? No. 5. NARCOTIC MEDICINES: Have they been receiving any narcotic medications? (e.g., morphine, Vicodin) No 6. CAUSE: What do you think is causing the confusion? PTSD and recent trauma. 7. OTHER SYMPTOMS: Are there any other symptoms? (e.g., difficulty breathing, fever, headache, weakness) Intermittent chest pain. Was seen in the ER in October. She was discharged but states she does not knowthe cause. Protocols used: Confusion - [id number] documented in this encounter Plan of Treatment Upcoming Encounters Date Type Department Care Team (Late st Contact Info) Description 01/10/2025 3:40 PM EDT Appointment Radiology Department - [address] [phone] documented as of this encounter Visit Diagnoses Not on filedocumented in this encounter Care Teams Ophthalmic Nurse Relationship Specialty Start Date End Date Coni Carter MD [address] [place] [id number] PCP - General Internal Medicine 12/14/15 documented as of this encounter
[2024-12-09 18:55] VITALS: BP 127/83; PULSE 56; RESP 18; TEMP 36.7; O2SAT 99
== END 2024-12-09 18:56 | disposition home or self-care (01) ==
PROVIDERS: Physician Assistant Medical; Emergency Provider Emergency Medicine; PCP Internal Medicine
DX: R42 Dizziness and giddiness (principal); R41.3 Other amnesia; F43.9 Reaction to severe stress, unspecified; R51.9 Headache, unspecified; Z79.899 Other long term (current) drug therapy
CPT/HCPCS: 36415; 70450; 80048; 80076; 81001; 83690; 83735; 84484; 85025; 87086; 93005; 99284; 99285

== ENCOUNTER → 2024-12-09 13:11 | Outpatient (BNV) | payer OTHER, SELFPAY | PROVIDERS: Emergency Provider Emergency Medicine; PCP Internal Medicine; Visit Provider Internal Medicine | DX: R42 Dizziness and giddiness (principal) | CPT/HCPCS: 93010 ==

== ENCOUNTER → 2024-12-09 16:45 | Outpatient (BNV) | payer OTHER, SELFPAY | PROVIDERS: Emergency Provider Emergency Medicine; PCP Internal Medicine; Visit Provider Radiology Vascular & Interventional Radiology | DX: R41.3 Other amnesia (principal); R20.2 Paresthesia of skin | CPT/HCPCS: 70450 ==

== ENCOUNTER 2024-12-27 08:01 | Outpatient (AMB) | payer OTHER, SELFPAY ==
--- OUTSIDE RECORDS SUMMARY | 2024-12-27 08:03 | XMS_ITS | Encounter Summary ---
Author Organization [facility] [place] [address] Care Team Providers Care Instructor Apparel Manufacture Name Role Phone Coni Carter MD Primary Care Provider [phone] Encounter Details Date Type Department Care Team (Late st Contact Info) Description 12/09/2024 Nurse Triage Adult Medicine [address] [phone] Milena Gonzalez RN Social History Tobacco Use [...] She then asked to speak to a technical supervisor and asked to wait on hold. [...] not knowthe cause. Protocols used: Confusion - [id number] documented in this encounter Plan of Treatment Upcoming Encounters Date Type Department Care Team (Late st Contact Info) Description 01/10/2025 3:40 PM EDT Appointment Radiology Department - [address] [phone] documented as of this encounter Visit Diagnoses Not on filedocumented in this encounter Care Teams Instructor Apparel Manufacture Relationship Specialty Start Date End Date Coni Carter MD [address] [place] [id number] PCP - General Internal Medicine 12/14/15 documented as of this encounter
--- OUTSIDE RECORDS SUMMARY | 2024-12-27 08:04 | XMS_ITS | Data Portability ---
Author Organization [facility]ET[facility], [address] Address [address] [place] [address] Care Team Providers Care Rn Faculty Name Role Phone [facility] Primary Care Provide r LEDA ELLER Project Officer [phone] Assessment No assessment recorded. Plan of Treatment Reminders Order Date Submit Date Provider Last Modified By Organization Details Last Modified Time Details Appointments None recorded. Lab None recorded. Referral None recorded. Procedures None recorded. Surgeries None recorded. Imaging None recorded. Medication Orders cyclobenzap rine [address] [facility] #[id number], [address] [place], [address], 3 13:49:49 naproxen 500 mg tablet [address] [facility] #[id number], [address] [place], [address], 3 13:49:49 Patient TargetsNo targets recorded. Patient Instructions Encounter Date Encounter Id Patient Instructions Last Modified By Organization Details Last Modified Time 10/26/2022 [id number] upper and middle back (thoracic) strain: care instructions [email or web address] Not available 10/26/2022 13:49:56 10/28/2022 [id number] MUSCULOSKELETAL PAIN can be managed quite effectively with over the counter medications and home treatments. When suffering from sprains, strains, contusions and other types of very painful but non-dangerous musculoskeletal pain try the followin. IBUPROFEN 600 mg orally every 6 hours as needed for pain. (You may substitute naproxen/alleve 1-2 tablets orally twice per day, but do not take ibuprofen and naproxen together. They are in the same class of medications - NSAIDs). 2. ACETAMINOPHEN 1,000 mg or 6 hours is needed for pain. 3. ICE and/or HEAT as needed for pain. Only use ice or heat for about 20 minutes at a time to prevent skin damage. You may switch from one to the other if it helps. Repeat frequently throughout the day as needed. Please do not fall asleep while using ice or heat as severe frostbite or jones can result. For sudden injuries it is best to use ice without heat for the first two days. You may then add heat as needed for pain control. 4. Topical medication such as ASPERCREME, mineral ice, and bengay feels good to rub on painful areas and then works by distracting you from the pain. Do not apply over broken skin. 5. Many musculoskeletal injuries can benefit from gentle stretching or strengthening exercises. If pain does not improve please see your doctor or return to [facility] within one week. If your symptoms become severe or uncontrolled or if you develop new concerning symptoms please go to the Emergency Department for evaluation and pain control. [email or web address] Not available 10/28/2022 09:20:31 Reason for Referral None Reported. Problems Name Problem SNOMED Code Status Onset Date Resolution Date Notes Provider Name and Address Organization Details Recorded Time Asthma [id number] Active 023 DENIS day [employer] 10/26/2022 13:05:21 Problem Notes None recorded. Procedures Surgical History Date Name Laterality Status Provider Name and Address Organization Details Recorded Time removal of intrauterine device completed DENIS PAT [employer] 10/26/2022 13:05:46 fallopian tube excision completed DENIS PAT [place] [employer] 10/26/2022 13:06:07 Imaging Results None recorded. Procedure Notes None recorded. Medical Equipment None Reported. Allergies No known drug allergies Medications Name Sig Start Date Stop Date Status Note LastModified by Organization Details LastModified Time cyclobenzapr ine 10 mg tablet Take 1 tablet twice a day by oral route for 5 days. 2022 active Not Available Not Available Not Avai lable naproxen 500 mg tablet Take 1 tablet twice a day by oral route for 5 days. 2022 active Not Available Not Available Not Avai lable albuterol 90 mcg-budesoni de 80 mcg/actuatio n HFA aerosol inhaler Inhale by inhalation route. active Not Available Not Available No t Available Vitals Date Recorded Body height Body mass index (BMI) Body weight Body temperature Oxygen saturation Oxygen saturation in Arterial blood by Pulse oximetry Heart rate Respiratory rate Systolic And Diastolic Provider Name and Address Organization Details Last Updated DateTime 3 167.64 cm 45.7 kg/m2 737400. 64 g 97.2 [degF] 99 % 99 % 83 /min 18 /min 124/77 mm[Hg] DENIS PAT [place] [employer] 3 13:07:59 Date Recorded Body height Body mass index (BMI) Body weight Respiratory rate Oxygen saturation Oxygen saturation in Arterial blood by Pulse oximetry Heart rate Body temperature Systolic And Diastolic Provider Name and Address Organization Details Last Updated DateTime 3 167.64 cm 45.7 kg/m2 057934. 64 g 20 /min 99 % 99 % 78 /min 97.9 [degF] 127/84 mm[Hg] Bernie Jin [place] [facility] 3 08:45:50 Social History Question Answer Notes LastModified by [employer] Details LastModified Time Tobacco Smoking Status Never Smoker DENIS day [place] [employer] 10/26/2022 13:05:29 Have You Had Direct Contact, Or Contact During Intimacy, With Monkeypox Rash, Scabs, Or Body Fluids From A Person With Monkeypox? No Information not available 10/26/2022 Have You Recently Traveled Abroad? No Information not available 10/26/2022 Are You Currently In School? No Information not available 10/26/2022 Sex: Unknown Functional Status Question Answer Note LastModified by [employer] Details LastModified Time Do you use any illicit or recreational drugs? No Information not available 10/26/2022 What is your level of alcohol consumption? None Information not available 10/26/2022 Are you currently employed? Yes Information not available 10/26/2022 Mental Status None recorded. Family History Relationship Description Onset Age of this Age Resolved Age Notes LastModified by Organization Details LastModified Time Father No current problems or disability Not available 10/17 13:05:24 Mother No current problems or disability Not available 10/17 13:05:24 Medical History No medical history recorded. Gynecological History Statement/Question Response Date of LMP 10/12/2022 Is there any chance of ? No Obstetrics History GPAL:G 0 P 0 0 0 0 Past Encounters Encounter ID Performer Location Encounter Start Date Encounter Closed Date Diagnosis/Indication Diagnosis SNOMED-CT Code Diagnosis ICD10 Code Diagnosis Note [id number] [address] [facility] [address] [address] 10/15/2021 14:32:59 10/15/2021 18:04:28 [id number] [address] [place] [address] 01/21/2022 14:09:50 01/21/2022 15:52:42 [id number] [place] [address] [address] 10/26/2022 12:48:27 10/26/2022 13:59:43 Strain of thoracic region 82398665 S29.019A Please follow up with PCP or Urgent Care in 3-5 days if no improvemen t or if any new symptoms occur that are concerning .Call 911 or go to nearest ER if you develop any shortness of breath, chest pain, severe headache, dizziness, or other concerning symptoms [id number] [place] [address] [address] 10/28/2022 08:11:48 10/28/2022 09:24:50 Scapulalgia 13219121 M25.519 Continue medication as prescribed . Pain upper back. Thoracic back pain 93864 8004 M54.6 [facility] sm of thoracic back [id number] 09109 M62.830 Health Concerns Section Related Observation LastModified by Organization Detai ls LastModified Time None Recorded Concern Status LastModified by Organization Details LastModified Time None Recorded Advance Directives Directive None Recorded Payers Insurance Date Sequence Insurance Name Policy Number Policy [place] Covered Member ID [place] Member ID Guarantor Name 10/28/2022 [facility] Generic Employer Lauryn Márquez Notes Date Note Type Note Provider Name and Address Organization Details Recorded Time 3 text/html Back Pain/Injury UCReported bypatient.Location:upper back; pain is not radiating Quality:tightness;muscle spasms Context:work injury Aggravating Factors:twistingNotes:Pain is upper back, left greater than right. Pulled and lifted a box when felt pain Neema Gooden MD [address] [place], [address], [employer] 10/26/2022 14:34:00 3 text/html Back Pain / InjuryReported bypatient.source of patient informationInformation obtained from patient; Patient arrived at Urgent Care ambulatory; learning styles: visual Location:upper back; pain is not radiating Quality:sharp;muscle spasms Severity:pain level 6/10;interference with work Duration:started 10/26/2022; 3 days Context:work injury Alleviating Factors:analgesics; NSAIDS; rest Aggravating Factors:bending/squatting; changing clothes Previous InjuryNo prior injury to affected body part Prior Imaging:none Rc Gonsales NP [address] [facility] [place], [address], [employer] [employer] 10/28/2022 09:22:28 OBGyn Episode No OBEpisode recorded.
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
[2024-12-27 08:22] VITALS: BP 110/70; PULSE 74; O2SAT 99
== END 2024-12-27 09:04 | disposition home or self-care (01) ==
LOC: HO.HSMS 08:02
PROVIDERS: PCP Internal Medicine; Visit Provider Psychiatry & Neurology Neurology
DX: R41.89 Other symptoms and signs involving cognitive functions and awareness (principal); M54.2 Cervicalgia; G47.00 Insomnia, unspecified; G47.10 Hypersomnia, unspecified; R51.9 Headache, unspecified; G89.29 Other chronic pain
CPT/HCPCS: 99204

== ENCOUNTER 2024-12-27 08:01 | Outpatient (REF) | payer OTHER, SELFPAY ==
[2024-12-27 14:55] LABS: Folate 3.8 ng/mL (> or = 4.0); Vitamin B12 379 pg/mL (200-900)
[2024-12-31 16:49] LABS: Vitamin D 25-OH, D2 <4 ng/mL; Vitamin D 25-OH, D3 30 ng/mL; Vitamin D 25-OH, Total 30 ng/mL (30-100)
== END 2024-12-27 08:02 | disposition home or self-care (01) ==
LOC: HO.HKASLDS 08:01
PROVIDERS: PCP Internal Medicine; Visit Provider Psychiatry & Neurology Neurology
DX: R41.89 Other symptoms and signs involving cognitive functions and awareness (principal)
CPT/HCPCS: 36415; 82306; 82607; 82746; 84443; 85652

== ENCOUNTER → 2025-02-27 13:24 | Outpatient (REF) | payer OTHER, SELFPAY ==
--- OUTSIDE RECORDS SUMMARY | 2025-02-27 17:23 | XMS_ITS ---
Author Name [facility] Organization Unknown Care Team Organization Name Specialty Phone Email Start Date End [facility] Penny Hernandez [facility] 11/25/2022 024
--- OUTSIDE RECORDS SUMMARY | 2025-02-27 17:23 | XMS_ITS | Encounter Summary ---
Author Organization Located Within [facility] Address [facility] [employer] [facility] [address] [place] [address] Phone Care Team Providers Care Feed Research Technician Name Role Phone Coni Carter MD Primary Care Provider [phone] Encounter Details Date Type Department Care Team (Late st Contact Info) Description 03/18/2023 Procedure [facility] Ct Scan - [address] [address] Social History Tobacco Use Types Packs/Day Years Used Date Smoking Tobacco: Never Smokeless Tobacco: Never Alcohol Use Standard Drinks/Week Comments Never 0 (1 standard drink = 0.6 oz pur e alcohol) Education Answer Date Recorded Are you interested in more education? Not on shivam e 10/15/2022 Are you concerned about learning? Not on file 10/15/2022 No 10/15/2022 No 10/15/2022 Digital Access Answer Date Recorded No 11/11/2022 No 11/11/2022 Reliable internet access at home? Not on file 11/11/2022 Device with a working camera? Not on file Intimate Partner Violence Answer Date R ecorded Are you denied basic needs s uch as food, clothing, or medical care? No 03/18/2023 In the past 12 months have y ou been in a relationship with a person who hurts, threatens, or tries to control you? No 03/18/2023 Are you denied basic needs s uch as food, clothing, or medical care? No 03/18/2023 In the past 12 months have y ou been in a relationship with a person who hurts, threatens, or tries to control you? 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 Wish to be (Past 1 Month) No 023 2:47 PM EDT Kelly Vazquez RN 2. Non-Specific Active Suici marion Thoughts (Past 1 Month) No 03/18/2023 2:47 PM EDT Deja Vazquez RN 6. Suicidal Behavior (Lifetime) No 3 2:47 PM EDT Kelly Vazquez RN documented as of this encounter Plan of Treatment Upcoming Encounters Date Type Department Care Team (Late st Contact Info) Description 12/30/2025 9:00 AM EDT Office Visit [facility] [address] [place] [id number] Emilie Ahuja MD [address] [facility] [place] [address] [email or web address] documented as of this encounter Visit Diagnoses Not on filedocumented in this encounter Care Teams Feed Research Technician Relationship Specialty Start Date End Date Coni Carter MD [address] [place] [id number] PCP - General Internal Medicine 10/07/22 documented as of this encounter Additional Source Comments The information contained in this document represents components of the legal health record. It is not the complete legal health record.Located Within [facility]
--- OUTSIDE RECORDS SUMMARY | 2025-02-27 17:23 | XMS_ITS | Clinical Summary ---
Author Organization [facility] Address [address] [place] [address] [place] [address] Phone Care Team Providers Care Digester Name Role Phone Coni Carter MD Primary Care Provider [phone] Allergies No known active allergies Medications albuterol 90 mcg/actuation inhaler Inhale 2 puffs into the lungs every 6 (six) hours as needed for wheezing. Active multivit-min/iron/ folic acid/K (BARIATRIC MULTIVITAMINS ORAL) 1 capsule daily. It's the patch not the capsule once daily Active cholecalciferol (VITAMIN D3) 50,000 unit capsuleIndications :Vitamin D deficiency Take 1 capsule (50,000 Units total) by mouth once a week. 4 capsule 1 4 Active amitriptyline (ELAVIL) 10 MG tablet Take 10 mg by mouth nightly at bedtime. 5 Active magnesium oxide (MAG-OX) 400 mg (241.3 mg elemental) tablet Take 1 tablet by mouth every morning. 5 Active Active Problems Problem Noted Date Diagnosed Date Overweight with body mass in dex (BMI) of 29 to 29.9 in adult 05/31/2024 Assessment & Plan (05/31/2024 10:46 AM EST): This is a 44-year-old woman who underwent a laparoscopic sleeve gastrectomy with hiatal hernia repair February 16, 2023. The patient had been lost to follow-up for sometime after having undergone weight loss surgery. She started back at the program in March and is doing well with weight loss. She is following eating plan and water intake. She is exercising relatively regularly. She will add more formalized resistance training. She will follow-up with the dietitian as already scheduled for July 04 and follow-up with me again in 2 months timeframe. She is completing her last weeks supplementation of vitamin D and then will have the vitamin D level rechecked. Patient will continue current medications as reviewed. She is not stable and is considered overweight. Intestinal malabsorption following gastrectomy 1 Class 1 obesity due to exces s calories without serious comorbidity with body mass index (BMI) of 30.0 to 30.9 in adult 03/03/2023 Assessment & Plan (12/31/2024 1:25 PM EDT): This is a 44-year-old woman who underwent a laparoscopic sleeve gastrectomy with hiatal hernia repair February 16, 2023. The patient is stabilized on her weight. She has resumed exercise and is eating appropriately. She will continue current water intake and medications. I have ordered her annual blood work. We will call her if any of those labs are abnormal. Patient will continue current eating plan exercise plan and water intake. She will follow-up annually. She is not stable and is considered obese. Assessment & Plan (03/26/2024 4:25 PM EDT): This is a 43-year-old woman who underwent a laparoscopic sleeve gastrectomy with hiatal hernia repair February 16, 2023. The patient has been lost to follow-up for the past year. She reports that she did not have health insurance for 6 months. She is looking to get back on track in terms of her eating. She will add formalized exercise at least 30 minutes of strength training and cardiovascular exercise 3-4 times per week. I have placed her back on the eating plan as she is skipping meals and not getting enough protein. She will do 2 protein shakes a day and 2 meals a protein and vegetables and 1/2 cup of carbohydrate once a day. She will continue current medications as reviewed. I have ordered her annual blood work and we will call her if any of the labs are abnormal. She will follow-up with the dietitian in 2 to 3 weeks and follow-up with me again in 8 weeks timeframe. She is not stable and is considered obese. Bariatric surgery status 02/16/2023 Assessment & Plan (03/24/2023 2:00 PM EDT): This is a 42-year-old woman who is 6 weeks status post laparoscopic sleeve gastrectomy with hiatal hernia repair. The patient has right upper quadrant pain and has had 2 CAT scans once at [facility] emergency department and also at [facility] emergency department which only show bilateral nonobstructing nephrolithiasis. The patient likely has pulled a muscle in the right upper quadrant. I personally reviewed the CT scan of the abdomen and pelvis from [facility] and there are no abnormalities that are seen. The patient was told to use a muscle relaxer and extra strength Tylenol [id number] every 6 hours over the weekend. She may return to work at the beginning of next week. She should follow-up as already scheduled. Assessment & Plan (03/03/2023 10:43 AM EDT): This is a 42-year-old woman who underwent a laparoscopic sleeve gastrectomy with hiatal hernia repair February 16, 2023. She is doing extremely well with weight loss. She is drinking plenty of water and is started formalized exercise. She will continue all of these things. She will advance her diet as she is prescribed below over the next set of 6 weeks. The patient should avoid all heavy lifting greater than 15 pounds for another 2 weeks. She will see the dietitian in follow-up in 4 weeks and will follow-up with me again in 8 weeks timeframe. She will continue current medications as reviewed. She is not stable and is considered obese. She will continue taking her bariatric patch for her vitamin supplementation. Postoperative Diet Advancement Two weeks postoperatively: Two protein shakes daily and 2 small meals that are pureed Advanced to pureed diet which is chunk light pink tuna with mayonnaise, canned shredded chicken with mayonnaise, ricotta cheese with spaghetti sauce, ground turkey or ground chicken chili without beans, scrambled eggs, cottage cheese, Vietnamese yogurt, cauliflower rice, or you may place any food in the coffee blender a food porter to create pureed food. Four weeks postoperatively: Two protein shakes daily and 2 small soft regular meals. At this point you will not have to puree food. Make sure the food is cooked soft and chewed well before you swallow it. Six weeks postoperatively: Two protein shakes daily and 2 regular meals. Avoid all salads and raw vegetables for 3 months postoperatively. Morbid obesity with BMI of 40.0-44.9, adult 07/21 Assessment & Plan (01/30/2023 12:14 PM EDT): This is a 42-year-old woman who is interested in a laparoscopic sleeve gastrectomy for weight loss. The patient has lost an additional 12 pounds and has 7.4 more pounds to lose before she can be a surgical weight loss candidate. She has obtained her primary care doctor physical exam, she has completed 5 out of 5 nutrition classes, 2 out of 2 behavioral health assessments and has been cleared, and all required testing. The patient is drinking plenty water, following the eating plan, and exercising regularly. She should continue this current plan. Patient will follow-up with the dietitian in 3 weeks and follow-up with me again in 6 weeks timeframe. She should continue current medications as reviewed. She is not stable and is considered morbidly obese. If this patient meets her weight loss goal before her next appointment with me we will submit her information to the insurance company for approval for laparoscopic sleeve gastrectomy with possible hiatal hernia repair and intraoperative endoscopy. She will have a preoperative visit with the dietitian prior to surgery. Assessment & Plan (12/06/2022 3:59 PM EDT): This is a 42-year-old woman who is interested in undergoing laparoscopic sleeve gastrectomy. The patient reports she was unable to perform the plan for the past month secondary to a back injury and having insufficient funds to purchase the materials for the eating plan. She is back on the eating plan and exercise plan over the past month and reports she has lost almost 10 pounds. The patient will continue current eating plan and exercise and water intake. She will follow-up with the dietitian in 2 and 4 weeks and follow-up with me again in 6 weeks timeframe. She has 19.4 more pounds to lose. She has to complete the 5 nutrition classes and she has completed 2 out of 2 behavioral health assessments and all required testing. She will continue current medications as reviewed. She is not stable and is considered morbidly obese. Assessment & Plan (10/07/2022 12:02 PM EDT): This is a 42-year-old woman who is interested in the laparoscopic sleeve gastrectomy for weight loss. She has lost 5.2 more pounds and has now 15.2 more pounds to lose before being a surgical weight loss candidate. She still needs to complete all the required nutrition classes. She has completed 2 out of 2 behavioral health assessments and has been cleared, she has completed all required testing. The patient needs to add formalize exercise. She will continue current water intake. She was advised to avoid eating 2 meals or a meal and a meal replacement sooner than 3 hours apart. She will continue current medications as reviewed. She is not stable and is considered morbidly obese. I will follow-up with her again in 4 weeks timeframe. Assessment & Plan (09/09/2022 9:48 AM EDT): This is a 42-year-old woman who is interested in laparoscopic sleeve gastrectomy for weight loss. The patient has lost 9.6 pounds since starting the medical component of the program and how has 20.4 more pounds to lose before being a surgical weight loss candidate. She recently started formalized exercise this week but only exercise once for 10 minutes. She felt winded and plans to increase the frequency with which she performs exercise and intensity as she is able. She will continue current water intake. She needs to increase her protein intake so that she is getting at least 80 g of protein on a daily basis. Patient has completed 1 out of 2 behavioral health assessments and has scheduled her second assessment. She needs to have her zinc level drawn as this was the only lab that was not drawn when she completed the rest of her testing. She will follow-up with me again in 4 weeks timeframe. She will continue current medications as reviewed. She is not stable and is considered morbidly obese. Assessment & Plan (08/09/2022 2:33 PM EST): This is a 42 YO patient who is interested in weight loss surgery, specifically the laparoscopic sleeve gastrectomy for weight loss. We have discussed gastric bypass and sleeve gastrectomy surgery in detail including risks, benefits, and alternatives. We have also discussed requirements preop and post op. They understands that they are required to lose about 10 percent of their current weight which is 30 lbs. The goal weight at the time of submission to the insurance company will be 268.4 pounds. In an effort to help the patient to lose weight I have prescribed an eating plan which will consist of a protein shake or a protein bar or Vietnamese yogurt or cottage cheese to be consumed at 9 AM and 3 PM daily. The patient will consume 4 ounces of protein with 6 ounces of vegetable or small salad with a noncreamy salad dressing of not more than 2 tablespoons at 12 PM and 6 PM daily. At the 6 PM meal the patient may have 1/2 cup of carbohydrate. We have ordered required labs and testing. The patient will attend 5 nutrition classes, 2 appointments, and dietitian consultation. The patient will need to obtain a medical clearance letter from the primary care doctor prior to submission to the insurance company. The patient will see the dietitian in 2 weeks and I will follow up with them again in 4 weeks to ensure compliance with the meal plan. The patient will continue current medications as reviewed. They are not stable and are considered overly obese. I spent 42 minutes with this patient which also included documentation. Preoperative examination 08/09/2022 Encounters Date Type Department Care Team Description 01/20/2025 11:30 AM EDT Nutrition [facility] [address] [place] [address] Joann Tafoya LDN Obesity (BMI 30.0-34.9) (Primary Dx) 12/31/2024 1:00 PM EDT Office Visit [facility] [address] [place] [address] Emilie Ahuja MD Class 1 obesity due to excess calories without serious comorbidity with body mass index (BMI) of 30.0 to 30.9 in adult (Primary Dx); Bariatric surgery status; Status post laparoscopic sleeve gastrectomy; Intestinal malabsorption following gastrectomy from Last 3 Months Immunizations Immunization Administration Dates Next Due Influenza Quadrivalent Preservative Free IM 10/2021 Tdap 11/15/2022 Family History Medical History Relation Comments Diabetes type II Father Heart disease Father Hyperlipidemia Father Prostate cancer Maternal Grandfather Heart attack Maternal Grandmother Heart disease Mother Hyperlipidemia Mother Relation Status Comments Brother Alive Father Maternal Grandfather Maternal Grandmother Mother Alive Paternal Grandfather Paternal Grandmother Alive Sister 1 Alive Sister 2 Alive Social History Tobacco Use Types Packs/Day Years Used Date Smoking Tobacco: Never Smokeless Tobacco: Never Tobacco Cessation:Counseling Given: Not Answered Alcohol Use Standard Drinks/Week Comments Never 0 [...] 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 Not on file Not on file Last Filed Vital Signs Vital Sign Reading Time Taken Comments Blood Pressure 120/80 01/20/2025 11:00 AM EDT Pulse 66 01/20/2025 11:00 AM EDT Temperature 36.9 C (98.4 F) 01/20/2025 11:00 AM EDT Respiratory Rate 18 03/18/2023 6:16 PM EDT Oxygen Saturation 95% 01/20/2025 11:00 AM EDT Inhaled Oxygen Concentration - - Weight 88.1 kg (194 lb 3.2 oz) 01/20/2025 11:00 AM EDT Height 167.6 cm (5' 5.98 ) 01/20/2025 11:00 AM E DT Body Mass Index 31.36 01/20/2025 11:00 AM EDT Plan of Treatment Upcoming Encounters Date Type Department Care Team (Late st Contact Info) Description 12/30/2025 9:00 AM EDT Office Visit [facility] General Surgical Care [address] [place] [address] Emilie Ahuja MD [address] [facility], 2nd [place] [address] Health Maintenance Due Date Last Done Comments DEPRESSION SCREENING 1994 HEPATITIS C SCREENING 2000 HIV ONE-TIME SCREENING (18-6 5 YEARS) 2000 PAP SMEAR 2003 INFLUENZA VACCINE (#1) 2025 07/24/2021 COVID-19 VACCINE ( - 2024-2 6 season) 2025 07/24/2021, 01/16/2021, 12/12/2020 MAMMOGRAM 01/10/2027 01/10/2025, 01/10/2025 SCREENING FOR DIABETES 04/09/2027 , 04/09/2024 Adult Td,Tdap Booster 11/15/2032 11/15/2022 SMOKING STATUS SCREENING (On ce After 26 Yrs) Completed 01/20/2025 HEPATITIS A VACCINES Aged Out No long er eligible based on patient's age to complete this topic HIB VACCINES Aged Out No longer eligi ble based on patient's age to complete this topic MENINGOCOCCAL VACCINES (ACWY) Aged Out No longer eligible based on patient's age to complete this topic MENINGOCOCCAL VACCINES (B) Aged Out N o longer eligible based on patient's age to complete this topic PNEUMOCOCCAL VACCINES (0-49 years) Aged Out No longer eligible b ased on patient's age to complete this topic Medical Devices Not on file Insurance [employer] PPO Member Subscriber Plan / Payer (Ef fective 2022-Present) Name:Lauryn Márquez Relation to Subscriber:Self Name:Lauryn Márquez Payer ID:[id number] (NAIC) Type:PPO Address: [address] PARTIAL [employer] PPO Member Subscriber Plan / Payer (Ef fective 2022-Present) Name:Lauryn Márquez Relation to Subscriber:Self Name:Lauryn Márquez Payer ID:[id number] (NAIC) Type:PPO Address: [address] NET PARTIAL CIGNA PPO [facility] PARTIAL CIGNA PPO [facility] PARTIAL CIGNA PPO Member Subscriber Plan / Payer (Ef fective 2022-Present) Name:Lauryn Márquez Relation to Subscriber:Self Name:Lauryn Márquez Payer ID:[id number] ([facility]) Type:PPO Address: [facility] [id number] [address] PARTIAL CIGNA PPO [facility] NET PARTIAL Advance Directives For more information, please contact: [phone] (9AM - 5PM Emily/[facility], Monday-Monday) * Full Code (Latest Code Status on File) Date Activated Date Inactivated Comments 02/16/2023 11:04 AM Question Answer Comments Code Status Confirmed With: Patient * Full Code Date Activated Date Inactivated Comments 02/16/2023 6:15 AM 02/16/2023 11:04 AM Question Answer Comments Code Status Confirmed With: Patient Care Teams Digester Relationship Specialty Start Date End Date Coni Carter MD [address] [place] [address] PCP - General Internal Medicine 10/07/22 Additional Source Comments The information contained in this document represents components of the legal health record. It is not the complete legal health record.[facility]
--- OUTSIDE RECORDS SUMMARY | 2025-02-27 17:23 | XMS_ITS | Encounter Summary ---
Author Organization [facility] Address [facility] [employer] [facility] [address] [place] [phone] Phone Care Team Providers Care Bessemer Regulator Name Role Phone Coni Carter MD Primary Care Provider [phone] Encounter Details Date Type Department Care Team (Late st Contact Info) Description 02/16/2023 Procedure Pass OR Admitting Dept - Virtual Department [address] [place] [address] Social History Tobacco Use Types Packs/Day Years [...] with a working camera? 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 Wish to be (Past 1 Month) No 023 11:00 AM EDT Cecille Melo RN 2. Non-Specific Active Suici marion Thoughts (Past 1 Month) No 02/16/2023 11:00 AM EDT Alanis Melo RN 6. Suicidal Behavior (Lifetime) No 11:00 AM EDT Cecille Melo RN documented as of this encounter Plan of Treatment Upcoming Encounters Date Type Department Care Team (Late st Contact Info) Description 12/30/2025 9:00 AM EDT Office Visit [facility] General Surgical Care [address] [place] [phone] Emilie Ahuja MD 15 [facility], [address] [place] [address] [email or web address] documented as of this encounter Visit Diagnoses Not on filedocumented in this encounter Care Teams Bessemer Regulator Relationship Specialty Start Date End Date Coni Carter MD [address] [place] [phone] PCP - General Internal Medicine 10/07/22 documented as of this encounter Additional Source Comments The information contained in this document represents components of the legal health record. It is not the complete legal health record.[facility]
--- OUTSIDE RECORDS SUMMARY | 2025-02-27 17:23 | XMS_ITS | Encounter Summary ---
Author Organization [facility] Address [address] [place] [address] [place] [address] Phone Care Team Providers Care Sleep Tech Name Role Phone [place] Marla Quintero MD Primary Care Provider Coni Carter MD Primary Care Provider [phone] Encounter Details Date Type Department Care Team (Late st Contact Info) Description 08/30/2022 Transcribe Orders [facility] Specimen Processing [address] [place] [address] Emilie Ahuja MD 15 [facility], [address] [place] [phone] [email or web address] Social History Tobacco Use Types Packs/Day Years [...] 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 Not on file Not on file documented as of this encounter Plan of Treatment Upcoming Encounters Date Type Department Care Team (Late st Contact Info) Description 12/30/2025 9:00 AM EDT Office Visit [facility] General Surgical Care [address] [place] [address] Emilie Ahuja MD 15 [facility], 2nd [place] [address] [email or web address] documented as of this encounter Visit Diagnoses Not on filedocumented in this encounter Care Teams Sleep Tech Relationship Specialty Start Date End Date Marla Albert MD [address] [place] [phone] PCP - General Internal Medicine 08/09/22 10/06/22 Coni Carter MD [address] [place] [id number] PCP - General Internal Medicine 10/07/22 documented as of this encounter Additional Source Comments The information contained in this document represents components of the legal health record. It is not the complete legal health record.[facility]
== END ==
LOC: HO.SL 13:24
PROVIDERS: PCP Internal Medicine; Visit Provider Psychiatry & Neurology Neurology
DX: Z13.89 Encounter for screening for other disorder (principal)

== ENCOUNTER → 2025-02-27 13:36 | Outpatient (BNV) | payer OTHER, SELFPAY | PROVIDERS: PCP Internal Medicine; Visit Provider Psychiatry & Neurology Neurology | DX: R06.83 Snoring (principal) | CPT/HCPCS: 95806 ==